=== PATIENT | male | born 1995 | race Caucasian/White ===

== ENCOUNTER 2022-02-01 17:40 | Emergency (ER) | payer OTHER, SELFPAY ==
[2022-02-01 17:46] VITALS: BP 138/90; PULSE 93; RESP 20; TEMP 36.7; O2SAT 95; BMI 36.6
--- NOTE | 2022-02-01 17:50 | ED.GENADULT ---
HPI - General Adult General Chief complaint: Upper Respiratory Symptoms <SAMMY Valdes - Last Filed: 02/05/22 12:51> Stated complaint: cough sob chest pain <SAMMY Valdes - Last Filed: 02/05/22 12:51> Time Seen by Provider: 02/01/22 21:19 <SAMMY Valdes - Last Filed: 02/05/22 12:51> Source: patient <Abner Mann MD - Last Filed: 02/02/22 00:01> Mode of arrival: ambulatory <Abner Mann MD - Last Filed: 02/02/22 00:01> Limitations: no limitations <Abner Mann MD - Last Filed: 02/02/22 00:01> History of Present Illness HPI narrative: Patient's history of remote asthma been coughing for last 3 weeks may have mucopurulent phlegm no fever no chills coughing more in the evening and early a.m. sometime patient gets bright red streaks of blood with mucopurulent phlegm feel chest tight no fever or chills <Abner Mann MD - Last Filed: 02/02/22 00:01> Related Data Home medications: Previous Rx's Medication Instructions Recorded albuterol sulfate 90 mcg/actuation 2 puff inhalation Q4-6H PRN 02/01/22 aerosol inhaler (ProAir HFA) shortness of breath or wheezing #8.5 grams azithromycin 250 mg tablet 250 mg PO DAILY 4 days #4 tabs 02/01/22 (Zithromax Z-Rohit) codeine 10 mg-guaifenesin 100 mg/5 10 ml PO Q6H PRN cough #237 mL 02/01/22 mL oral liquid prednisone 20 mg tablet 40 mg PO DAILY #10 tabs 02/01/22 <SAMMY Valdes - Last Filed: 02/05/22 12:51> Allergies/adverse reactions: Allergies Allergy/AdvReac Type Severity Reaction Status Date / Time No Known Allergies Allergy Unverified 10/29/19 19:27 [No Known Allergies*] <SAMMY Valdes - Last Filed: 02/05/22 12:51> Review of Systems Review of Systems: Yes all other systems are reviewed and are negative <Abner Mann MD - Last Filed: 02/02/22 00:01> [facility] Social History Social History: Social History Advance Directives: No Advance Directives Information Provided: Yes <SAMMY Valdes - Last Filed: 02/05/22 12:51> Physical Exam ED Vital Signs: Vital Signs - 24 hr 02/01/22 17:46 02/01/22 22:17 Temperature 98.1 F Pulse Rate 93 82 Respiratory Rate 20 18 Blood Pressure 138/90 H Pulse Oximetry 95 Oxygen Delivery Method Room Air BMI result Body Mass Index 36.6 <SAMMY Valdes - Last Filed: 02/05/22 12:51> Vital Signs - 24 hr 02/01/22 17:46 02/01/22 22:17 Temperature 98.1 F Pulse Rate 93 82 Respiratory Rate 20 18 Blood Pressure 138/90 H Pulse Oximetry 95 Oxygen Delivery Method Room Air BMI result Body Mass Index 36.6 <Abner Mann MD - Last Filed: 02/02/22 00:01> Appearance: Alert. Oriented X3. No acute distress. ENT: Pharynx normal. Oral Mucosa moist Neck: Normal inspection. Neck supple. CVS: Normal heart rate and rhythm. Pulses normal. Respiratory: No respiratory distress. Equal air entry bilateral, bilateral wheezing no rales Abdomen: Soft and nontender. Bowel sounds are present, no mass palpable, no CVA tenderness Skin: Skin warm and dry. Normal skin color. Normal skin turgor. Extremities: No lower extremity edema. No calf tenderness Neuro: Oriented X 3. No motor deficit. <Abner Mann MD - Last Filed: 02/02/22 00:01> Course Course Course Narrative: RME: 26 yold male presents to the ED for Cough, Chest pain, and SOB and hemopytsis for 3 weeks. EKG, labs, and D -dimer ordered due to hemopytsis <SAMMY Valdes - Last Filed: 02/05/22 12:51> Medications Administered Discontinued Medications Generic Name Dose Route Start Last Admin Trade Name Freq PRN Reason Stop Dose Admin Albuterol Sulfate 2 puff 02/01/22 22:04 02/01/22 22:27 Albuterol Sulfate 90 Mcg 8 Gm Inhaler INHALE 02/01/22 22:05 Not Given ONCE ONE Azithromycin 500 mg 02/01/22 22:04 02/01/22 22:28 Azithromycin 500 Mg Tablet PO 02/01/22 22:05 500 mg ONCE ONE Administration Albuterol Sulfate 2.5 mg/ 0 mg 02/01/22 22:04 02/01/22 22:21 Albuterol/Ipratropium 3 ml INHALE 02/01/22 22:05 2.5 each ONCE ONE Administration Dexamethasone 10 mg 02/01/22 22:04 02/01/22 22:26 Dexamethasone 2 Mg Tablet PO 02/01/22 22:05 10 mg ONCE ONE Administration Guaifenesin/Codeine Phosphate 10 ml 02/01/22 22:04 02/01/22 22:29 Guaifen/Codeine Sf 200/20/10ml 10 Ml Liquid PO 02/01/22 22:05 10 ml ONCE ONE Administration <SAMMY Valdes - Last Filed: 02/05/22 12:51> Medications Administered Discontinued Medications Generic Name Dose Route Start Last Admin Trade Name Adria PRN Reason Stop Dose Admin Albuterol Sulfate 2 puff 02/01/22 22:04 02/01/22 22:27 Albuterol Sulfate 90 Mcg 8 Gm Inhaler INHALE 02/01/22 22:05 Not Given ONCE ONE Azithromycin 500 mg 02/01/22 22:04 02/01/22 22:28 Azithromycin 500 Mg Tablet PO 02/01/22 22:05 500 mg ONCE ONE Administration Albuterol Sulfate 2.5 mg/ 0 mg 02/01/22 22:04 02/01/22 22:21 Albuterol/Ipratropium 3 ml INHALE 02/01/22 22:05 2.5 each ONCE ONE Administration Dexamethasone 10 mg 02/01/22 22:04 02/01/22 22:26 Dexamethasone 2 Mg Tablet PO 02/01/22 22:05 10 mg ONCE ONE Administration Guaifenesin/Codeine Phosphate 10 ml 02/01/22 22:04 02/01/22 22:29 Guaifen/Codeine Sf 200/20/10ml 10 Ml Liquid PO 02/01/22 22:05 10 ml ONCE ONE Administration <Abner Mann MD - Last Filed: 02/02/22 00:01> Medical Decision Making Medical Decision Making [facility] Narrative: Perisplenic bronchitis felt better after nebulizing treatment will discharge patient home <Abner Mann MD - Last Filed: 02/02/22 00:01> Lab Data [facility] Lab Attestation statement: I reviewed the patient's lab results. <Abner Mann MD - Last Filed: 02/02/22 00:01> Result Diagrams: : 02/01/22 18:37 02/01/22 18:37 <SAMMY Valdes - Last Filed: 02/05/22 12:51> Labs: Lab Results 02/01/22 02/01/22 02/01/22 Range/Units 18:36 18:37 18:37 WBC 9.3 (4.8-10.8) X10*3/uL RBC 5.35 (4.60-5.80) X10*6/uL Hgb 15.2 (14.0-18.0) g/dl Hct 45.8 (42.0-52.0) % MCV 85.6 (80.0-98.0) fL MCH 28.4 (27.0-33.0) pg MCHC 33.2 (31.0-36.0) g/dl RDW 12.5 (11.0-16.0) % Plt Count 293 (160-400) X10*3/uL MPV 9.0 L (9.4-12.4) fL Immature Gran % (Auto) 0.1 (0.0-0.4) % Neut % (Auto) 53.0 (45-73) % Lymph % (Auto) 30.8 (20-40) % Loup % (Auto) 7.1 (2-11) % Eos % (Auto) 8.4 H (0-4) % Baso % (Auto) 0.6 (0-2) % Lymph # (Auto) 2.9 (1.2-4.9) X10*3/uL Loup # (Auto) 0.7 (0.1-1.2) X10*3/uL Eos # (Auto) 0.8 H (0.0-0.4) X10*3/uL Baso # (Auto) 0.1 (0.0-0.2) X10*3/uL Abs Immat Gran (auto) 0.01 (0.00-0.03) X10*3/uL Absolute Neuts (auto) 4.9 (2.0-8.3) x10*3/uL Absolute Nucleated RBC 0.000 (0.0-0.012) X10*3/uL Nucleated RBC % (auto) 0.0 (0.0-0.2) /100WBC PT (10.0-13.1) SEC INR (0.9-1.1) APTT (26.0-36.4) SEC D-Dimer High Sensitivty NG/ML Sodium (135-145) mmol/L Potassium (3.3-5.1) mmol/L Chloride (96-108) mmol/L Carbon Dioxide (22-29) mmol/L Anion Gap (12-20) BUN (9-16) mg/dL Creatinine (0.5-1.4) mg/dL Estim Creat Clear Calc Estimated GFR Random Glucose (60-115) mg/dL Calcium (8.4-10.2) mg/dL Total Bilirubin (0.0-1.0) mg/dL AST (5-37) U/L ALT (0-40) U/L Alkaline Phosphatase (39-117) U/L Troponin I High Sens < 3.5 (<3.5-35.0) ng/L B-Natriuretic Peptide (<100) pg/mL Total Protein (6.5-8.0) g/dL Albumin (3.5-5.0) g/dL Influenza Type A (PCR) NEGATIVE (Negative) Influenza Type B (PCR) NEGATIVE (Negative) RSV RNA Qual (PCR) NEGATIVE (Negative) SARS-CoV-2 RNA (RT-PCR) NEGATIVE (Negative) 02/01/22 02/01/22 02/01/22 Range/Units 18:37 18:37 18:37 WBC (4.8-10.8) X10*3/uL RBC (4.60-5.80) X10*6/uL Hgb (14.0-18.0) g/dl Hct (42.0-52.0) % MCV (80.0-98.0) fL MCH (27.0-33.0) pg MCHC (31.0-36.0) g/dl RDW (11.0-16.0) % Plt Count (160-400) X10*3/uL MPV (9.4-12.4) fL Immature Gran % (Auto) (0.0-0.4) % Neut % (Auto) (45-73) % Lymph % (Auto) (20-40) % Loup % (Auto) (2-11) % Eos % (Auto) (0-4) % Baso % (Auto) (0-2) % Lymph # (Auto) (1.2-4.9) X10*3/uL Loup # (Auto) (0.1-1.2) X10*3/uL Eos # (Auto) (0.0-0.4) X10*3/uL Baso # (Auto) (0.0-0.2) X10*3/uL Abs Immat Gran (auto) (0.00-0.03) X10*3/uL Absolute Neuts (auto) (2.0-8.3) x10*3/uL Absolute Nucleated RBC (0.0-0.012) X10*3/uL Nucleated RBC % (auto) (0.0-0.2) /100WBC PT 12.4 (10.0-13.1) SEC INR 1.1 (0.9-1.1) APTT 36.6 H (26.0-36.4) SEC D-Dimer High Sensitivty < 150 NG/ML Sodium 140 (135-145) mmol/L Potassium 4.0 (3.3-5.1) mmol/L Chloride 104 (96-108) mmol/L Carbon Dioxide 28 (22-29) mmol/L Anion Gap 12 (12-20) BUN 18 H (9-16) mg/dL Creatinine 0.92 (0.5-1.4) mg/dL Estim Creat Clear Calc 164.4 Estimated GFR > 60 Random Glucose 75 (60-115) mg/dL Calcium 9.4 (8.4-10.2) mg/dL Total Bilirubin 0.3 (0.0-1.0) mg/dL AST 20 (5-37) U/L ALT 21 (0-40) U/L Alkaline Phosphatase 75 (39-117) U/L Troponin I High Sens (<3.5-35.0) ng/L B-Natriuretic Peptide < 10 (<100) pg/mL Total Protein 8.0 (6.5-8.0) g/dL Albumin 4.4 (3.5-5.0) g/dL Influenza Type A (PCR) (Negative) Influenza Type B (PCR) (Negative) RSV RNA Qual (PCR) (Negative) SARS-CoV-2 RNA (RT-PCR) (Negative) <SAMMY Valdes - Last Filed: 02/05/22 12:51> Lab Results 02/01/22 02/01/22 02/01/22 Range/Units 18:36 18:37 18:37 WBC 9.3 (4.8-10.8) X10*3/uL RBC 5.35 (4.60-5.80) X10*6/uL Hgb 15.2 (14.0-18.0) g/dl Hct 45.8 (42.0-52.0) % MCV 85.6 (80.0-98.0) fL MCH 28.4 (27.0-33.0) pg MCHC 33.2 (31.0-36.0) g/dl RDW 12.5 (11.0-16.0) % Plt Count 293 (160-400) X10*3/uL MPV 9.0 L (9.4-12.4) fL Immature Gran % (Auto) 0.1 (0.0-0.4) % Neut % (Auto) 53.0 (45-73) % Lymph % (Auto) 30.8 (20-40) % Loup % (Auto) 7.1 (2-11) % Eos % (Auto) 8.4 H (0-4) % Baso % (Auto) 0.6 (0-2) % Lymph # (Auto) 2.9 (1.2-4.9) X10*3/uL Loup # (Auto) 0.7 (0.1-1.2) X10*3/uL Eos # (Auto) 0.8 H (0.0-0.4) X10*3/uL Baso # (Auto) 0.1 (0.0-0.2) X10*3/uL Abs Immat Gran (auto) 0.01 (0.00-0.03) X10*3/uL Absolute Neuts (auto) 4.9 (2.0-8.3) x10*3/uL Absolute Nucleated RBC 0.000 (0.0-0.012) X10*3/uL Nucleated RBC % (auto) 0.0 (0.0-0.2) /100WBC PT (10.0-13.1) SEC INR (0.9-1.1) APTT (26.0-36.4) SEC D-Dimer High Sensitivty NG/ML Sodium (135-145) mmol/L Potassium (3.3-5.1) mmol/L Chloride (96-108) mmol/L Carbon Dioxide (22-29) mmol/L Anion Gap (12-20) BUN (9-16) mg/dL Creatinine (0.5-1.4) mg/dL Estim Creat Clear Calc Estimated GFR Random Glucose (60-115) mg/dL Calcium (8.4-10.2) mg/dL Total Bilirubin (0.0-1.0) mg/dL AST (5-37) U/L ALT (0-40) U/L Alkaline Phosphatase (39-117) U/L Troponin I High Sens < 3.5 (<3.5-35.0) ng/L B-Natriuretic Peptide (<100) pg/mL Total Protein (6.5-8.0) g/dL Albumin (3.5-5.0) g/dL Influenza Type A (PCR) NEGATIVE (Negative) Influenza Type B (PCR) NEGATIVE (Negative) RSV RNA Qual (PCR) NEGATIVE (Negative) SARS-CoV-2 RNA (RT-PCR) NEGATIVE (Negative) 02/01/22 02/01/22 02/01/22 Range/Units 18:37 18:37 18:37 WBC (4.8-10.8) X10*3/uL RBC (4.60-5.80) X10*6/uL Hgb (14.0-18.0) g/dl Hct (42.0-52.0) % MCV (80.0-98.0) fL MCH (27.0-33.0) pg MCHC (31.0-36.0) g/dl RDW (11.0-16.0) % Plt Count (160-400) X10*3/uL MPV (9.4-12.4) fL Immature Gran % (Auto) (0.0-0.4) % Neut % (Auto) (45-73) % Lymph % (Auto) (20-40) % Loup % (Auto) (2-11) % Eos % (Auto) (0-4) % Baso % (Auto) (0-2) % Lymph # (Auto) (1.2-4.9) X10*3/uL Loup # (Auto) (0.1-1.2) X10*3/uL Eos # (Auto) (0.0-0.4) X10*3/uL Baso # (Auto) (0.0-0.2) X10*3/uL Abs Immat Gran (auto) (0.00-0.03) X10*3/uL Absolute Neuts (auto) (2.0-8.3) x10*3/uL Absolute Nucleated RBC (0.0-0.012) X10*3/uL Nucleated RBC % (auto) (0.0-0.2) /100WBC PT 12.4 (10.0-13.1) SEC INR 1.1 (0.9-1.1) APTT 36.6 H (26.0-36.4) SEC D-Dimer High Sensitivty < 150 NG/ML Sodium 140 (135-145) mmol/L Potassium 4.0 (3.3-5.1) mmol/L Chloride 104 (96-108) mmol/L Carbon Dioxide 28 (22-29) mmol/L Anion Gap 12 (12-20) BUN 18 H (9-16) mg/dL Creatinine 0.92 (0.5-1.4) mg/dL Estim Creat Clear Calc 164.4 Estimated GFR > 60 Random Glucose 75 (60-115) mg/dL Calcium 9.4 (8.4-10.2) mg/dL Total Bilirubin 0.3 (0.0-1.0) mg/dL AST 20 (5-37) U/L ALT 21 (0-40) U/L Alkaline Phosphatase 75 (39-117) U/L Troponin I High Sens (<3.5-35.0) ng/L B-Natriuretic Peptide < 10 (<100) pg/mL Total Protein 8.0 (6.5-8.0) g/dL Albumin 4.4 (3.5-5.0) g/dL Influenza Type A (PCR) (Negative) Influenza Type B (PCR) (Negative) RSV RNA Qual (PCR) (Negative) SARS-CoV-2 RNA (RT-PCR) (Negative) <Abner Mann MD - Last Filed: 02/02/22 00:01> Discharge Plan Discharge Clinical Impression: Acute asthmatic bronchitis <SAMMY Valdes - Last Filed: 02/05/22 12:51> Patient Disposition: Home, Self-Care <SAMMY Valdes - Last Filed: 02/05/22 12:51> Instructions: Asthma (ED), Acute Bronchitis (ED) <SAMMY Valdes - Last Filed: 02/05/22 12:51> Additional Instructions: Use inhaler as prescribed Prednisone as prescribed Cough syrup and antibiotic as prescribed Follow with PCP <SAMMY Valdes - Last Filed: 02/05/22 12:51> Prescriptions: New prednisone 20 mg tablet 40 mg PO DAILY Qty: 10 0RF codeine-guaifenesin 10-100 mg/5 mL liquid 10 ml PO Q6H PRN (Reason: cough) Qty: 237 0RF albuterol sulfate [ProAir HFA] 90 mcg/actuation HFA aerosol inhaler 2 puff inhalation Q4-6H PRN (Reason: shortness of breath or wheezing) Qty: 8.5 0RF azithromycin [Zithromax Z-Rohit] 250 mg tablet 250 mg PO DAILY 4 Days Qty: 4 0RF Rx Instructions: start on day 2 of therapy <SAMMY Valdes - Last Filed: 02/05/22 12:51> Interventions: ED Discharge Assessment Last Done: 02/01/22 23:14 <SAMMY Valdes - Last Filed: 02/05/22 12:51> Discharge Date/Time: 02/01/22 23:14 <SAMMY Valdes - Last Filed: 02/05/22 12:51>
[2022-02-01 18:47] LABS: MANUAL DIFF FLAG NO
[2022-02-01 18:48] LABS: Basophils Absolute Auto 0.1 X10*3/uL (0.0-0.2); Basophils Percent Auto 0.6 % (0-2); Eosinophils Absolute Auto 0.8 X10*3/uL (0.0-0.4); Eosinophils Percent Auto 8.4 % (0-4); Hematocrit 45.8 % (42.0-52.0); Hemoglobin 15.2 g/dl (14.0-18.0); Imm Gran Abs Auto 0.01 X10*3/uL (0.00-0.03); Imm Gran Pct Auto 0.1 % (0.0-0.4); Lymphocytes Absolute Auto 2.9 X10*3/uL (1.2-4.9); Lymphocytes Percent Auto 30.8 % (20-40); Mean Corpuscular HGB Conc 33.2 g/dl (31.0-36.0); Mean Corpuscular Hemoglobin 28.4 pg (27.0-33.0); Mean Corpuscular Volume 85.6 fL (80.0-98.0); Monocytes Absolute Auto 0.7 X10*3/uL (0.1-1.2); Monocytes Percent Auto 7.1 % (2-11); Neutrophils Absolute Auto 4.9 x10*3/uL (2.0-8.3); Platelet Count 293 X10*3/uL (160-400); Red Blood Count 5.35 X10*6/uL (4.60-5.80); Red Cell Distribution Width 12.5 % (11.0-16.0); White Blood Count 9.3 X10*3/uL (4.8-10.8)
[2022-02-01 18:55] LABS: INTERNATIONAL NORM RATIO 1.1 (0.9-1.1); Prothrombin Time 12.4 SEC (10.0-13.1)
[2022-02-01 18:58] LABS: Partial Thromboplastin Time 36.6 SEC (26.0-36.4)
[2022-02-01 19:04] LABS: Alanine Aminotransferase 21 U/L (0-40); Albumin Level 4.4 g/dL (3.5-5.0); Alkaline Phosphatase 75 U/L (39-117); Anion Gap 12 (12-20); Aspartate Amino Transferase 20 U/L (5-37); Bilirubin Total 0.3 mg/dL (0.0-1.0); Blood Urea Nitrogen 18 mg/dL (9-16); Calcium 9.4 mg/dL (8.4-10.2); Carbon Dioxide 28 mmol/L (22-29); Chloride 104 mmol/L (96-108); Creatinine Clr Calc Pharmacy 164.4; Estimated Glomerular Filt Rate > 60; Glucose Random 75 mg/dL (60-115); Sodium 140 mmol/L (135-145)
[2022-02-01 19:07] LABS: D Dimer High Sensitivity < 150 NG/ML
[2022-02-01 19:09] LABS: B Type Natriuretic Peptide < 10 pg/mL (<100)
[2022-02-01 19:11] LABS: Troponin-I High Sensitivity < 3.5 ng/L (<3.5-35.0)
[2022-02-01 19:31] LABS: Influenza A PCR NEGATIVE (Negative); Influenza B PCR NEGATIVE (Negative); Resp Syncy Virus RNA Qual PCR NEGATIVE (Negative); SARS COV2 PCR INHOUSE NEGATIVE (Negative)
[2022-02-01 22:17] VITALS: PULSE 82; RESP 18; O2SAT 95
[2022-02-01] MEDS: Albuterol Sulfate 2.5 MG, Albuterol/Iprat 2.5/0.5MG 3 ML 3 ML INHALE (22:21)
[2022-02-01] MEDS: dexAMETHasone 2 MG TABLET 10 MG PO (22:26)
[2022-02-01] MEDS: Azithromycin 500 MG TABLET PO (22:28)
[2022-02-01] MEDS: guaiFEN/Codeine SF 200/20/10ML 10 ML LIQUID PO (22:29)
== END 2022-02-01 23:14 | disposition home or self-care (01) ==
PROVIDERS: Physician Assistant; Emergency Provider Internal Medicine
DX: J45.909 Unspecified asthma, uncomplicated (principal); J20.9 Acute bronchitis, unspecified; Z20.822 Contact with and (suspected) exposure to COVID-19; R06.02 Shortness of breath
CPT/HCPCS: 0241U; 36415; 71045; 80053; 83880; 84484; 85025; 85379; 85610; 85730; 93005; 94640; 99283; 99284; J8540

== ENCOUNTER 2023-10-15 08:22 | Emergency (ER) | payer OTHER, SELFPAY ==
--- NOTE | ~2023-10-15 | XR_ITS ---
EXAMINATION: XR CHEST CLINICAL INFORMATION: Cough and wheezing COMPARISON: 02/01/2022 TECHNIQUE: 2 views of the chest were obtained. FINDINGS: Some minimal streaky densities seen on the lateral radiograph overlying the lower thoracic spine likely representing basilar atelectasis, side uncertain. There is no gross consolidation. No significant abnormality is noted involving the heart, lungs, mediastinum, bony thorax or soft tissues. XR/XR chest 2V IMPRESSION: No acute intrathoracic disease. Minimal basilar atelectasis. Electronically signed by: Jani Nguyen MD 10/15/2023 11:18 AM EDT
[2023-10-15 08:29] VITALS: BP 129/77; PULSE 100; RESP 19; TEMP 37.4; O2SAT 99; BMI 35.3
[2023-10-15] MEDS: Albuterol Sulfate 2.5 MG, Albuterol/Iprat 2.5/0.5MG 3 ML 3 ML INHALE (09:13)
[2023-10-15 09:15] VITALS: PULSE 100; RESP 19; O2SAT 98
--- NOTE | 2023-10-15 09:44 | ED.URI ---
HPI - URI/Sore Throat General Chief Complaint: Upper Respiratory Symptoms Stated Complaint: SOB, dizziness Time Seen by Provider: 10/15/23 08:42 Source: patient Mode of arrival: ambulatory Limitations: no limitations History of Present Illness ED Provider: Rebecca Laws PA-C HPI Narrative: 28 yo with history of asthma presenting to the ER for evaluation of SOB, wheezing, productive cough, fatigue and feeling unwell since yesterday morning. He has history of asthma and does not have an inhaler, it ran out. He had chills yesterday and a possible subjective fever. He has been bringing up yellow phlegm at times. He has chest discomfort when he coughs and touches his chest wall. No abdominal pain, nausea, vomiting, diarrhea, leg swelling. No known sick contacts. MD elicited complaint: fever, cough, sore throat and other (wheezing) Pertinent past history: asthma Onset (ago): day(s) (1) Consistency: progressively worsening Severity: moderate Description of mucous: clear and yellow Able to tolerate fluids by mouth: Yes Exacerbating factors: nothing Relieving factors: nothing Associated symptoms: fever, chills, myalgias, sore throat, cough, chest pain and shortness of breath Treatments prior to arrival: none Related Data Previous Rx's ?Medication ?Instructions ?Recorded albuterol sulfate 90 mcg/actuation 2 puff inhalation Q4-6H PRN 02/01/22 aerosol inhaler (ProAir HFA) shortness of breath or wheezing #8.5 grams azithromycin 250 mg tablet 250 mg PO DAILY 4 days #4 tabs 02/01/22 (Zithromax Z-Rohit) codeine 10 mg-guaifenesin 100 mg/5 10 ml PO Q6H PRN cough #237 mL 02/01/22 mL oral liquid prednisone 20 mg tablet 40 mg (2 x 20 mg) PO DAILY #10 tabs 02/01/22 albuterol sulfate 90 mcg/actuation 1 inh inhalation QID PRN shortness 10/15/23 aerosol inhaler of breath or wheezing #6.7 grams azithromycin 250 mg tablet See Rx Instructions PO .COMPLEX #6 10/15/23 (Zithromax Z-Rohit) tabs prednisone 20 mg tablet 40 mg (2 x 20 mg) PO DAILY #10 tabs 10/15/23 Allergies Allergy/AdvReac Type Severity Reaction Status Date / Time No Known Allergies Allergy Verified 10/15/23 08:31 [No Known Allergies*] Review of Systems Review of Systems: Yes all other systems are reviewed and are negative [facility] Social History Social History Advance Directives: No Advance Directives Information Provided: No Do you have a plan to hurt others: No Plan Physical Exam Vital Signs: Vital Signs: Last Vital Signs Temp 0 F L 10/15/23 11:09 Pulse 100 10/15/23 11:09 Resp 19 10/15/23 11:09 BP 0/0 L 10/15/23 11:09 Pulse Ox 99 10/15/23 08:29 O2 Del Method Room Air 10/15/23 08:29 BMI result Body Mass Index 35.3 Appearance: Alert. Oriented X3. No acute distress. Head: normocephalic, atraumatic. Eyes: Pupils equal, round and reactive to light. ENT: Pharynx normal. No tonsillar swelling or exudate. Neck: Normal inspection. Neck supple. CVS: Normal heart rate and rhythm. Pulses normal. Respiratory: No respiratory distress. Breath sounds with bilateral expiratory wheezes Abdomen: Soft and nontender. +BS x4 Skin: Skin warm and dry. Normal skin color. Normal skin turgor. No rashes. Extremities: No lower extremity edema. No joint swelling. Neuro/psych: Oriented X 3. No motor deficit. No sensory deficit. CN II-XII intact. Normal speech and cognition. Medications Administered Discontinued Medications Generic Name Dose Route Start Last Admin Trade Name Freq PRN Reason Stop Dose Admin Albuterol Sulfate 2.5 mg/ 0 mg 10/15/23 09:09 10/15/23 09:13 Albuterol/Ipratropium 3 ml INHALE 10/15/23 09:10 7.5 dose ONCE ONE Administration Guaifenesin 1,200 mg 10/15/23 08:55 10/15/23 10:00 Guaifenesin La 600 Mg Tab.Er.12h PO 10/15/23 08:56 1,200 mg ONCE ONE Administration Prednisone 50 mg 10/15/23 08:55 10/15/23 10:00 Prednisone 10 Mg Tablet PO 10/15/23 08:56 50 mg ONCE ONE Administration Medical Decision Making Medical Decision Making MDM Narrative: 28 yo male with history of asthma presenting for evaluation of URI symptoms along w cough and wheezing that started yesterday. On arrival he is wheezey but not working to breathe. Saturating well. He has chest wall tenderness, no chest pain at rest. low suspicion for cardiac etiology ED bronch protocol ordered along with PO prednisone he was re-evaluated after given neb treatment and he felt much better and his lung sounds significantly improved. covid negative today cxr without PNA. will treat for acute bronchitis. stable for d/c home with outpatient follow up Differential Diagnosis Differential Diagnoses: The differential diagnosis associated with the presentation includes strep, covid, flu, rsv, other viral syndrome, bronchitis, pneumonia, acute asthma exacerbation Admission/Observation Consideration of admission/observation: Escalation of care including admission/observation considered Lab Data [facility] Lab Attestation statement: I reviewed the patient's lab results. Labs: Lab Results 10/15/23 Range/Units 09:56 COVID-19 (ABILIO) Negative (Negative) COVID-19 Clin Com See Note Independent Interpretation I performed an independent interpretation of an: Plain X-Ray Interpretation: cxr clear without focal infiltrate Radiology Impression Discussion of test interpretation with radiology: I have reviewed the radiologist's reading. External Record Review External record reviewed: Outpatient record Tests considered The following testing was considered but not selected: ekg considered but low suspicion for cardiac etiology Prescription Management I considered prescription management with: Antibiotic Chronic Conditions Patient?s care impacted by: Other (asthma) Critical Care Time Critical Care Time Critical Care Time: No Discharge Plan Discharge Clinical Impression: Bronchitis Patient Disposition: Home, Self-Care Instructions: Acute Bronchitis (ED) Additional Instructions: You tested negative for COVID-19. Your chest x-ray did not show any evidence of pneumonia. Take the prescribed antibiotics as directed, complete the entire course and do not miss any doses Take the prescribed prednisone as directed, start the course tomorrow morning as your given 1st dose in the ER today. Prescriptions: New azithromycin [Zithromax Z-Rohit] 250 mg tablet See Rx Instructions .ROUTE .COMPLEX Qty: 6 0RF Rx Instructions: take 500 mg today (day 1), then 250 mg for 4 days (days 2-5) prednisone 20 mg tablet 40 mg PO DAILY Qty: 10 0RF albuterol sulfate 90 mcg/actuation HFA aerosol inhaler 1 inh inhalation QID PRN (Reason: shortness of breath or wheezing) Qty: 6.7 0RF No Action prednisone 20 mg tablet 40 mg PO DAILY Qty: 10 0RF codeine-guaifenesin 10-100 mg/5 mL liquid 10 ml PO Q6H PRN (Reason: cough) Qty: 237 0RF albuterol sulfate [ProAir HFA] 90 mcg/actuation HFA aerosol inhaler 2 puff inhalation Q4-6H PRN (Reason: shortness of breath or wheezing) Qty: 8.5 0RF azithromycin [Zithromax Z-Rohit] 250 mg tablet 250 mg PO DAILY 4 Days Qty: 4 0RF Rx Instructions: start on day 2 of therapy Stand Alone Forms: Work/School Release Interventions: ED Discharge Assessment Last Done: 10/15/23 11:09 Discharge Date/Time: 10/15/23 11:11 Print Language: Kittitian
[2023-10-15] MEDS: guaiFENesin LA 600 MG TAB.ER.12H 1200 MG PO (10:00)
[2023-10-15] MEDS: predniSONE 10 MG TABLET 50 MG PO (10:00)
[2023-10-15 10:24] LABS: COVID-19 Test Negative (Negative); IDNOW Serial# 08D9AD1C
[2023-10-15 11:09] VITALS: BP 0/0; PULSE 100; RESP 19; TEMP -17.7; TEMP 0
== END 2023-10-15 11:11 | disposition home or self-care (01) ==
PROVIDERS: Physician Assistant; Emergency Provider Emergency Medicine
DX: J40 Bronchitis, not specified as acute or chronic (principal); R06.02 Shortness of breath; R42 Dizziness and giddiness; R05.9 Cough, unspecified; R06.2 Wheezing; Z11.52 Encounter for screening for COVID-19
CPT/HCPCS: 71046; 87635; 94640; 99283; 99284

== ENCOUNTER 2024-03-20 14:10 | Emergency (ER) | payer OTHER, SELFPAY ==
--- NOTE | ~2024-03-20 | XR_ITS ---
EXAMINATION: XR CHEST CLINICAL INFORMATION: cough COMPARISON: October 15, 2023 TECHNIQUE: Frontal view of the chest was obtained. FINDINGS: No consolidation pleural effusion or pneumothorax. Cardiomediastinal silhouette size is normal. Osseous structures are intact. XR/XR chest 1V IMPRESSION: Normal Electronically signed by: Dominic Calderon MD 03/20/2024 03:06 PM [facility] [place]
[2024-03-20 14:40] VITALS: BP 120/79; PULSE 80; RESP 19; TEMP 36.4; O2SAT 96; BMI 36.6
--- NOTE | 2024-03-20 14:42 | ED_ITS ---
HPI - General Adult General Chief complaint: Upper Respiratory Symptoms Stated complaint: Diff Breathing Cough Sinus Issues Time Seen by Provider: 03/20/24 20:38 Source: patient Limitations: no limitations History of Present Illness ED Provider: Jeana Santiago PA-C HPI narrative: 28-year-old male with a history of asthma who presents with cough and cold symptoms x2 weeks. Associated bronchospasm type cough, and wheezing at times. Denies fever. Related Data Previous Rx's ?Medication ?Instructions ?Recorded albuterol sulfate 90 mcg/actuation 2 puff inhalation Q4-6H PRN 02/01/22 aerosol inhaler (ProAir HFA) shortness of breath or wheezing #8.5 grams azithromycin 250 mg tablet 250 mg PO DAILY 4 days #4 tabs 02/01/22 (Zithromax Z-Rohit) codeine 10 mg-guaifenesin 100 mg/5 10 ml PO Q6H PRN cough #237 mL 02/01/22 mL oral liquid prednisone 20 mg tablet 40 mg (2 x 20 mg) PO DAILY #10 tabs 02/01/22 albuterol sulfate 90 mcg/actuation 1 inh inhalation QID PRN shortness 10/15/23 aerosol inhaler of breath or wheezing #6.7 grams azithromycin 250 mg tablet See Rx Instructions PO .COMPLEX #6 10/15/23 (Zithromax Z-Rohit) tabs prednisone 20 mg tablet 40 mg (2 x 20 mg) PO DAILY #10 tabs 10/15/23 albuterol sulfate 90 mcg/actuation 2 puff inhalation Q4-6H PRN 03/20/24 aerosol inhaler shortness of breath or wheezing #6.7 grams prednisone 20 mg tablet 40 mg (2 x 20 mg) PO DAILY #8 tabs 03/20/24 Allergies Allergy/AdvReac Type Severity Reaction Status Date / Time No Known Allergies Allergy Verified 03/20/24 14:41 [No Known Allergies*] Review of Systems 2 Review of Systems: Yes all other systems are reviewed and are negative Constitutional: Constitutional: Denies fatigue and Denies fever(s) Cardiovascular: Cardiovascular: Denies chest pain and Reports dyspnea Respiratory: Respiratory: Reports cough, Reports dyspnea and Reports wheezing Gastrointestinal: Gastrointestinal: Denies diarrhea, Denies nausea and Denies vomiting Endocrine: Endocrine: Denies fatigue Allergic/Immunologic: Allergic/Immunologic: Reports wheezing PMFSH Past Medical History Attestation statement: The following information was validated with the patient. Physical Exam ED Vital Signs: Vital Signs - 24 hr 03/20/24 14:40 03/20/24 20:32 Temperature 97.6 F 97.8 F Pulse Rate 80 89 Respiratory Rate 19 14 Blood Pressure 120/79 129/83 Pulse Oximetry 96 96 Oxygen Delivery Method Room Air Room Air BMI result Body Mass Index 36.6 Const Other: Alert Orientation/consciousness: patient oriented x3 Resp Other: Normal peripheral perfusion, no wheezing active bronchospasm cough Cardio Other: Normal peripheral perfusion Skin Other: Warm dry no rash Neuro General: patient oriented x3, no focal motor deficits and CN's II-XI intact bilaterally Psych Other: Cooperative Course Course Course Narrative: This is a rapid medical exam performed by Jeana Santiago PA-C. The patient is a 28-year-old male with a history of asthma who presents with cough and cold symptoms x2 weeks. On exam his lungs are clear yet diminished with poor inspiratory effort. No wheezing. We will screen basic labs, viral panel and chest x-ray. The patient is stable and can return to the waiting room pending his full medical assessment. Medical Decision Making Medical Decision Making MDM Narrative: 28-year-old male with a history of asthma who presents with cough and cold symptoms x2 weeks. Associated bronchospasm type cough, and wheezing at times. Denies fever. Problem: Asthma History: Per patient I have considered the following differential diagnoses: Asthma exacerbation, bronchitis, pneumonia, viral syndrome Plan: Screening labs including viral panel and chest x-ray were obtained from triage, everything is negative. We will send with an inhaler and a steroid taper. I have independently reviewed the following tests: Labs: No leukocytosis, not anemic, no electrolyte abnormality, viral panel negative Chest x-ray: XR/XR chest 1V IMPRESSION: Normal Electronically signed by: Dominic Calderon MD 03/20/2024 03:06 [place] [facility] [place] 03/20/24 15:17 03/20/24 15:17 Labs: Lab Results 03/20/24 Range/Units 15:17 WBC 7.7 (4.8-10.8) X10*3/uL RBC 5.20 (4.60-5.80) X10*6/uL Hgb 15.1 (14.0-18.0) g/dl Hct 44.3 (42.0-52.0) % MCV 85.2 (80.0-98.0) fL MCH 29.0 (27.0-33.0) pg MCHC 34.1 (31.0-36.0) g/dl RDW 12.2 (11.0-16.0) % Plt Count 295 (160-400) X10*3/uL MPV 8.8 L (9.4-12.4) fL Immature Gran % (Auto) 0.3 (0.0-0.4) % Neut % (Auto) 55.1 (45-73) % Lymph % (Auto) 30.7 (20-40) % Overton % (Auto) 7.0 (2-11) % Eos % (Auto) 6.3 H (0-4) % Baso % (Auto) 0.6 (0-2) % Lymph # (Auto) 2.4 (1.2-4.9) X10*3/uL Overton # (Auto) 0.5 (0.1-1.2) X10*3/uL Eos # (Auto) 0.5 H (0.0-0.4) X10*3/uL Baso # (Auto) 0.1 (0.0-0.2) X10*3/uL Abs Immat Gran (auto) 0.02 (0.00-0.03) X10*3/uL Absolute Neuts (auto) 4.3 (2.0-8.3) x10*3/uL Absolute Nucleated RBC 0.000 (0.0-0.012) X10*3/uL Nucleated RBC % (auto) 0.0 (0.0-0.2) /100WBC Sodium 139 (135-145) mmol/L Potassium 3.8 (3.3-5.1) mmol/L Chloride 106 (96-108) mmol/L Carbon Dioxide 26 (22-29) mmol/L Anion Gap 11 L (12-20) BUN 13 (9-16) mg/dL Creatinine 0.80 (0.5-1.4) mg/dL Estim Creat Clear Calc 185.7 Estimated GFR > 60 Random Glucose 85 (60-115) mg/dL Calcium 9.2 (8.4-10.2) mg/dL Magnesium 2.1 (1.6-2.6) mg/dL Influenza Type A (PCR) NEGATIVE (Negative) Influenza Type B (PCR) NEGATIVE (Negative) RSV RNA Qual (PCR) NEGATIVE (Negative) SARS-CoV-2 RNA (RT-PCR) NEGATIVE (Negative) Discharge Plan Discharge Clinical Impression: Bronchospasm Patient Disposition: Home, Self-Care Instructions: Bronchospasm (ED) Additional Instructions: All of your screening labs were normal, the viral panel was negative, you were screened for influenza a and B RSV and COVID. The chest x-ray is clear. You are being treated for bronchospasm type cough. Use the albuterol inhaler as needed, take the steroid as directed. Follow up with your primary care provider as needed. Prescriptions: New albuterol sulfate 90 mcg/actuation HFA aerosol inhaler 2 puff inhalation Q4-6H PRN (Reason: shortness of breath or wheezing) Qty: 6.7 0RF prednisone 20 mg tablet 40 mg PO DAILY Qty: 8 0RF No Action prednisone 20 mg tablet 40 mg PO DAILY Qty: 10 0RF codeine-guaifenesin 10-100 mg/5 mL liquid 10 ml PO Q6H PRN (Reason: cough) Qty: 237 0RF albuterol sulfate [ProAir HFA] 90 mcg/actuation HFA aerosol inhaler 2 puff inhalation Q4-6H PRN (Reason: shortness of breath or wheezing) Qty: 8.5 0RF azithromycin [Zithromax Z-Rohit] 250 mg tablet 250 mg PO DAILY 4 Days Qty: 4 0RF Rx Instructions: start on day 2 of therapy azithromycin [Zithromax Z-Rohit] 250 mg tablet See Rx Instructions .ROUTE .COMPLEX Qty: 6 0RF Rx Instructions: take 500 mg today (day 1), then 250 mg for 4 days (days 2-5) prednisone 20 mg tablet 40 mg PO DAILY Qty: 10 0RF albuterol sulfate 90 mcg/actuation HFA aerosol inhaler 1 inh inhalation QID PRN (Reason: shortness of breath or wheezing) Qty: 6.7 0RF Print Language: Tajik
[2024-03-20 15:22] LABS: MANUAL DIFF FLAG NO
[2024-03-20 15:34] LABS: Basophils Absolute Auto 0.1 X10*3/uL (0.0-0.2); Basophils Percent Auto 0.6 % (0-2); Eosinophils Absolute Auto 0.5 X10*3/uL (0.0-0.4); Eosinophils Percent Auto 6.3 % (0-4); Hematocrit 44.3 % (42.0-52.0); Hemoglobin 15.1 g/dl (14.0-18.0); Imm Gran Abs Auto 0.02 X10*3/uL (0.00-0.03); Imm Gran Pct Auto 0.3 % (0.0-0.4); Lymphocytes Absolute Auto 2.4 X10*3/uL (1.2-4.9); Lymphocytes Percent Auto 30.7 % (20-40); Mean Corpuscular HGB Conc 34.1 g/dl (31.0-36.0); Mean Corpuscular Volume 85.2 fL (80.0-98.0); Mean Platelet Volume 8.8 fL (9.4-12.4); Monocytes Absolute Auto 0.5 X10*3/uL (0.1-1.2); Neutrophils Absolute Auto 4.3 x10*3/uL (2.0-8.3); Neutrophils Percent Auto 55.1 % (45-73); Platelet Count 295 X10*3/uL (160-400); Red Cell Distribution Width 12.2 % (11.0-16.0); White Blood Count 7.7 X10*3/uL (4.8-10.8)
[2024-03-20 15:36] LABS: Anion Gap 11 (12-20); Blood Urea Nitrogen 13 mg/dL (9-16); Calcium 9.2 mg/dL (8.4-10.2); Carbon Dioxide 26 mmol/L (22-29); Chloride 106 mmol/L (96-108); Creatinine Clr Calc Pharmacy 185.7; Estimated Glomerular Filt Rate > 60; Glucose Random 85 mg/dL (60-115); Magnesium 2.1 mg/dL (1.6-2.6); Potassium 3.8 mmol/L (3.3-5.1); Sodium 139 mmol/L (135-145)
[2024-03-20 16:02] LABS: Influenza A PCR NEGATIVE (Negative); Influenza B PCR NEGATIVE (Negative); Resp Syncy Virus RNA Qual PCR NEGATIVE (Negative); SARS COV2 PCR INHOUSE NEGATIVE (Negative)
[2024-03-20 20:32] VITALS: BP 129/83; PULSE 89; RESP 14; TEMP 36.6; O2SAT 96
--- OUTSIDE RECORDS SUMMARY | 2024-03-20 20:52 | XMS_ITS | Clinical Summary ---
Author Organization [facility] it Address [address] [place] [address] Care Team Providers Care Laser Print Operator Name Role First SamplerKlaus Nieto MD Primary Care Provider [phone] Surgical History Surgery Date Site/Laterality Comments OTHER SURGICAL HISTORY PROCEDURE: DENIES PREVIOUS SURGERY Medical History Medical History Date Comments Obesity 09/30/2013 DX:Obesity History of asthma 01/29/2014 DX:History of asthma Family History Medical History Relation Name Comments Other: epilepsy Brother 1 Hypertension Maternal Grandfather Alzheimer's disease Maternal Grandmother Diabetes Mother Other: gastric bypass Mother Relation Name Status Comments Brother 1 Alive Mental illness, seizure, hypoglycemia Brother 2 Alive Brother 3 Alive Brother 4 Alive Brother 5 Alive Father Alive Unknown Maternal Grandfather Alive Maternal Grandmother Alive Mother Alive DM Paternal Grandfather Alive Paternal Grandmother Sister Alive Social History Tobacco Use Types Packs/Day Years Used Date Smoking Tobacco: Never Smokeless Tobacco: Never Alcohol Use Standard Drinks/Week Comments Yes 0 (1 standard drink = 0.6 oz pur e alcohol) Sex and Gender Information Value Date Recorded Sex Assigned at Not on file Gender Identity Not on file Sexual Orientation Not on file Obstetrics History Plan of Treatment Health Maintenance Due Date Last Done Comments DTaP,Tdap,and Td Vaccines (1 - Tdap) 04/14/2014 Hepatitis B Vaccines (1 of 3 - 19+ 3-dose series) 04/14/2014 Cholesterol Screening (Lipid Panel) 01/13/2022 Depression Screening 01/13/2022 HIV Screening 01/13/2022 Hepatitis C Screening 01/13/2022 Social Influencers of Health Screening 01/13/2022 COVID-19 Vaccine (1 - 4-2 5 season) 2023 Influenza Vaccine (#1) 2023 01/29/2014 HIB Vaccines Aged Out No longer eligi ble based on patient's age to complete this topic HPV Vaccines Aged Out No longer eligi ble based on patient's age to complete this topic Hepatitis A Vaccines Aged Out No long er eligible based on patient's age to complete this topic IPV Vaccines Aged Out No longer eligi ble based on patient's age to complete this topic MMR Vaccines Aged Out No longer eligi ble based on patient's age to complete this topic Meningococcal ACWY Vaccine Aged Out N o longer eligible based on patient's age to complete this topic Pneumococcal Vaccine: Pediat rics (0 to 5 Years) and At-Risk Patients (6 to 64 Years) Aged Out No longer eligi ble based on patient's age to complete this topic RSV Immunization Patients Un kim 20 months Aged Out No longer eligible b ased on patient's age to complete this topic Varicella Vaccines Aged Out No longer eligible based on patient's age to complete this topic Care Teams Laser Print Operator Relationship Specialty Start Date End Date Klaus Nieto MD PCP - General Internal Medicine 12/21/13
[2024-03-20] MEDS: predniSONE 20 MG TABLET 40 MG PO (21:24)
[2024-03-20 21:26] VITALS: BP 129/83; PULSE 89; RESP 14; TEMP 36.6; O2SAT 96
== END 2024-03-20 21:26 | disposition home or self-care (01) ==
PROVIDERS: Physician Assistant Medical; Emergency Provider Emergency Medicine
DX: J98.01 Acute bronchospasm (principal); R06.02 Shortness of breath; R05.9 Cough, unspecified; Z79.899 Other long term (current) drug therapy; Z03.818 Encounter for observation for suspected exposure to other biological agents ruled out
CPT/HCPCS: 0241U; 36415; 71045; 80048; 83735; 85025; 99283

== ENCOUNTER → 2024-03-20 14:40 | Outpatient (BNV) | payer OTHER, SELFPAY | PROVIDERS: Visit Provider Radiology Diagnostic Radiology | DX: R05.9 Cough, unspecified (principal) | CPT/HCPCS: 71045 ==

== ENCOUNTER 2025-01-18 10:52 | Outpatient (AMB) | payer BC, SELFPAY ==
--- NOTE | 2025-01-18 10:55 | A.OFFPC_ITS ---
Vital Signs 01/18/25 11:02 Height 6 ft Weight 279 lb 8 oz BMI 37.9 BP 118/68 Blood Pressure Location Lt brachial Position Sitting Respiration 12 Pulse 82 Pulse Source Pulse Oximeter Temp 97.5 F Temp Source Oral Pulse Oximetry (%) 98 Oxygen Delivery Method Room Air Intake Visit Reasons: CPE Intake Note: New patient to establish care and cpe. Patient needs refill on med. 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 Allergies No Known Allergies (No Known Allergies*) Allergy (Verified 01/18/25 11:23) Medication List - Last Reviewed 01/18/25 by Tawny Lundberg MA albuterol sulfate 90 mcg/actuation 2 puffs inhalation Q4-6H PRN Tobacco use date assessed: 01/18/25 Dental Screening Dental Screen Date: 01/18/25 Did you have a dental visit in the last 12 months?: Yes Did you have a dental problem in the last 6 months where you did not have access to dental care?: No Was dental information given to patient?: Patient has dentist HPI HPI Comments History of Present Illness Details 29 y/o M with asthma, obesity Social: has 2 children, works on [employer] Surgery: None Fhx: Health Maintenance Tdap 2018 Flu declined 01/18/25 Specialists [facility] wears glasses History of Present Illness The patient is a 29 year old male presenting to establish care and discuss multiple concerns, including fatigue, a vasectomy consultation, and asthma. Limited medical records avail from [facility] ED visits only, reviewed. Fatigue: - He reports feeling sluggish and tired for about a month and a half, with no desire to do anything. - The onset of these symptoms coincides with his return to work after being out for three months following the of his second child. - He reports not feeling rested upon wak ing and admits to snoring. - He has difficulty falling asleep, ofte n lying in bed for about an hour before sleeping, and goes to sleep between 11 PM and midnight. - He denies mood-related issues like anx iety or depression. - He has never had a sleep study. Obesity: - His past medical history is significan t for obesity with a BMI of 37.9. Asthma: - He has a history of asthma and uses an albuterol inhaler as needed, though he has not required it in a couple of years. - His respiratory symptoms worsened afte r having COVID-19, particularly over the last year with physical activity. - He confirms albuterol helps when he us es it. - Declined flu shot; Tdap 2018 Vasectomy Consideration: - He is interested in getting a vasectom y. Premature Ejaculation: - He reports a new onset of reaching eja culation within about five minutes of intercourse, which has been his new normal for a couple of years. - This is occurring with his same partne r of five years, and he denies any as sociated anxiety. Allergic Rhinitis and Hearing Changes: - He reports an intermittent runny nose, alternating between nostrils, which resolves and then recurs after a week or two. - He experiences a clogged or numb sensa tion in his left ear intermittently and feels like his hearing diminishes at times. 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 - He reports some post-nasal drip. Past Medical History - Asthma - Obesity with BMI of 37.9 - History of hypercholesterolemia during his teenage years, which resolved. - COVID-19 infection, which led to a wor sening of respiratory symptoms. - Immunizations: Tdap vaccination in 8. - Declines flu shot. - Surgical History: Denies any past surg eries. Review of Systems - Constitutional: Reports fatigue and fe eling sluggish for one and a half months. - Eyes/Ears/Nose/Throat: Reports intermi ttent rhinorrhea, sensation of clogged left ear with subjective hearing changes, and some postnasal drip. Denies use of nasal sprays. - Respiratory: Reports worsening asthma symptoms with activity over the last year. Denies needing albuterol for the past couple of years. - Neurological: Reports difficulty falli ng asleep but does not feel rested upon waking. Reports snoring. Denies feeling anxious or depressed. - Genitourinary: Reports new onset america ture ejaculation for the past couple of years. Physical Exam General: Well developed, well nourished, in no acute distress. Appears stated age. Head: Normocephalic, atraumatic. Eyes: Pupils are equal, round and reactive to light and accommodation. Conjunctivae are clear. Vision grossly normal. Ears: TM intact bilat, bulging w/ loss of landmarks on L, mildly erythematous bilat, EAC clear Nose: Nares patent, turbinates pale and edematous, no sinus tenderness Throat: clear no PND Lungs: Clear to auscultation bilaterally. No rales, rhonchi or wheeze noted. Good air flow in all topete. Heart: Regular rate and rhythm. No murmurs, click, rubs or gallops are noted. Psych: Mood and affect appropriate. Results Pending Medical Decision Making The patient is a 29-year-old male here to establish care with multiple concerns. His primary complaints are fatigue and feeling sluggish, which began about a month and a half ago, coinciding with his return to work and the recent of his second child. Given his obesity (BMI 37.9), reports of snoring, and unrefreshing sleep, obstructive sleep apnea is a strong consideration, warranting a home sleep study. To further investigate the fatigue and new-onset premature ejaculation, a testosterone level will be checked via labs, as low levels can contribute to both symptoms. He also has a past history of high cholesterol, so a lipid panel is also indicated. He reports intermittent rhinitis, a clogged sensation, and subjective hearing changes in the left ear. Physical exam revealed significant fluid in both ears, worse on the left. This suggests eustachian tube dysfunction secondary to allergic rhinitis. Treatment will be initiated with a nasal steroid spray and an oral allergy medication to decompress the ears and alleviate nasal symptoms. An audiogram is ordered to establish a baseline and assess for any underlying hearing loss, especially given his occupational noise exposure without hearing protection. If symptoms do not improve or the audiogram is abnormal, an ENT referral will be necessary. His asthma is reportedly stable and only requires occasional albuterol, mainly with activity. A refill for his albuterol inhaler will be provided. He will be monitored, and a daily controller medication will be considered if symptoms worsen. A referral will be placed to [facility] for a vasectomy consultation. The concern of premature ejaculation will be added to the referral so the urologist can address it if the initial workup is unrevealing. Follow-up is scheduled in a few weeks to review the results of the labs and sleep study, and to assess his response to treatment for his ear and nasal symptoms. Plan 1. Fatigue And Sleep Disturbance - The patient's fatigue, unrefreshing sl eep, and snoring are concerning for obstructive sleep apnea. - A home sleep study will be ordered to evaluate for sleep-disordered breathing and nocturnal hypoxemia. - Blood work will be ordered today, incl uding a testosterone level, to rule out hormonal causes of fatigue. 2. Allergic Rhinitis And Eustachian Tube Dysfunction - The patient has symptoms of rhinitis a nd exam findings of fluid in the ears, particularly on the left, suggesting eustachian tube dysfunction. - A nasal spray will be prescribed, one spray in each nostril twice daily, to help with his nasal symptoms and decompress his ears. - An vmtf-vvd-qozddcd allergy pill, one tablet once daily, is recommended for a couple of weeks. - A referral for an audiogram (hearing t est) will be placed to assess his hearing. - If these treatments are ineffective or the hearing test is abnormal, a referral to an ENT specialist will be considered. 3. Asthma - A prescription for his as-needed albut kamilla inhaler will be refilled and sent to [facility] in [place]. - The plan is to continue with the as-ne eded inhaler for now and consider a daily controller medication if his asthma symptoms give him additional issues. 4. Vasectomy Consideration And Premature Ejaculation - A referral will be placed to [facility] for a vasectomy consultation. - The urology referral will also include the patient's concern about premature ejaculation for the specialist to address. - A testosterone level is being checked as part of his lab work, a potential contributor to his sexual health concerns. 5. Health Maintenance - Lab work ordered for today to check ch olesterol and other baseline values. - The patient declined the influenza vac cine. - Follow-up appointment scheduled in a c ouple of weeks to go over test results and reassess symptoms. Patient Instructions - You will receive a call from [facility] to schedule a consultation for a vasectomy. - You will also receive a call from the hospital to schedule a hearing test (audiogram) and a home sleep study. - You can get your blood work done today at the lab here in the building. - I have sent prescriptions to your phar daylin ([facility] in [place]). - Use the prescribed nasal spray with on e spray in each nostril in the morning and at night. - Take the prescribed allergy pill once a day for a couple of weeks. - Please schedule a follow-up appointmen t in a couple of weeks to review your test results. - After your visit, you will receive an email to sign up for the [facility] patient portal. Please click the link in the email within 24 hours to register. This is the best way to contact me. - Information about walk-in clinics will be provided at checkout, but please message me on the portal first if you need an appointment. - RTO 8-12 weeks to fu on labs, sleep st udy, hearing exam and above. Consent Patient was informed and verbally consented to the use of an ambient scribe for clinic note documentation during this visit. Total time spent caring for the patient today was 45 minutes. This includes time spent before the visit reviewing the chart, time spent during the visit, and time spent after the visit on documentation, reviewing laboratory results, diagnostic imaging, medications, performing a medically necessary evaluation, counseling on diagnoses, care coordination, ordering appropriate tests, ordering appropriate medications, review of tests performed by other providers, reporting test results with the patient, communication with other healthcare providers. [facility] Medical History (Updated 01/18/25 @ 11:47 by Marcela Bloom, [facility]) Asthma High blood cholesterol Surgical History (Updated 01/18/25 @ 11:04 by Tawny Lundberg MA) No pertinent past surgical history Family History (Updated 01/18/25 @ 11:05 by Tawny Lundberg MA) Maternal Grandmother HTN (hypertension) Mother Diabetes Social History (Updated 01/18/25 @ 11:04 by Tawny Lundberg MA) Household Members: Significant Other and Children Both parents involved: No Caregiver staying overnight: No Housing: House Are you a primary day care aide to a significant other at home: Yes Do you presently have visiting nurse or other home services: No 75 years or older and lives alone: No Alcohol intake: never Patient Tobacco Use Status: Never used Tobacco e-Cigarette/Vaping Use: Never Used Second Hand Smoke Exposure: No service: No Current occupational status: employed 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 1. Little interest or pleasure in doing things: not at all 2. Feeling down, depressed, or hopeless: not at all 3. Trouble falling or staying asleep, or sleeping too much: more than half the days 4. Feeling tired or having little energy: several days 5. Poor appetite or overeating: several days 6. Feeling bad about yourself - or that you are a failure or have let yourself or your family down: not at all 7. Trouble concentrating on things, such as reading the newspaper or watching television: not at all 8. Moving or speaking so slowly that other people could have noticed. Or the opposite - being so fidgety or restless that you have been moving around a lot more than usual: not at all 9. Thoughts that you would be better off or of hurting yourself in some way: not at all Total score: 4 Depression Screening Interpretation: Negative Depression Screening Done: Yes 30111 - PHQ-9 Billing: Yes Source: Developed by Drs. John Carrion, Gauri Rojas, Nikhil Santiago and colleagues, with an educational jos from [employer]. Thrive Questionnaire Date Thrive assessed: 01/18/25 I am a: Patient What is your living situation today?: I have a steady place to live Within the past 12 months, did the food you bought not last and you didn't have the money to get more?: Never true Within the past 12 months, did you worry whether your food would run out before you got money to buy more?: Never true Do you have trouble paying for medicines?: No Do you have trouble getting transportation to medical appointments?: No Do you have trouble paying your heating and electricity bill?: No Do you have trouble taking care of your child, family member or friend?: No Do you have trouble with day-to-day activities such as bathing, preparing meals, shopping, managing finances, etc.?: No Are you currently unemployed and looking for a job?: No Are you interested in more education?: No Please select the resources that you would like help with: None Currently or been in a relationship where the following occur: No concerns reported THRIVE Score: 0 AUDIT C Alcohol Use Questionnaire (AUDIT-C) 1. How often do you have a drink containing alcohol?: Never 3. How often do you have six or more drinks on one occasion?: Never Total Score: 0 Score Reviewed/Action Taken: Yes SANTIAGO-7 AMB Questionnaire SANTIAGO-7 Date SANTIAGO - 7 assessed: 01/18/25 Feeling nervous, anxious, or on edge: 0 = Not at all Not being able to stop or control worryin = Not at all Worrying too much about different things: 0 = Not at all Trouble relaxin = Several days Being so restless that it is hard to sit still: 1 = Several days Becoming easily annoyed or irritable: 1 = Several days Feeling afraid as if something awful might happen: 0 = Not at all Total SANTIAGO-7 score (0-4 normal; 5-9 mild; 10-14 moderate; 15-21 severe): 3 Source: Developed by Drs. John Carrion, Gauri Rojas, Nikhil Santiago and colleagues, with an educational jos from [employer]. SANTIAGO-7 Assessment Billing SANTIAGO-7 Assessment Tool: SANTIAGO-7 Assessment 42142 ACT Questionnaire In the past 4 weeks, how much of the time did your asthma keep you from getting as much done at work, school or at home?: None of the time During the past 4 weeks, how often have you had shortness of breath?: Not at all During the past 4 weeks, how often did your asthma symptoms wake you up at night or earlier than usual in the morning?: Not at all During the past 4 weeks, how often have you had to use your rescue inhaler or nebulizer medication?: Not at all How would you rate your asthma control during the past 4 weeks?: Completely controlled ACT Interpretation: Negative Score: 25 Physical exam (Primary Care) Vital Signs: Last Vital Signs Temp 97.5 F 01/18/25 11:02 Pulse 82 01/18/25 11:02 Resp 12 01/18/25 11:02 BP 118/68 01/18/25 11:02 Pulse Ox 98 01/18/25 11:02 Oxygen Delivery Method Room Air 01/18/25 11:02 BMI result Body Mass Index 37.9 BMI Assessment/Plan discussion: High BMI High, discussed plan: lifestyle Tobacco/Smoking Status: Tobacco use Status Tobacco use date assessed 01/18/25 01/18/25 11:05 Patient Tobacco Use Status Never used Tobacco 01/18/25 11:05 e-Cigarette/Vaping Use Never Used 01/18/25 11:05 PHQ-9: PHQ-9 Score PHQ-9: Total score 4 01/18/25 11:05 Depression Screening Interpretation: Negative Thrive Assessment: Date of Thrive Assessment Date Thrive assessed 01/18/25 01/18/25 11:05 Currently or been in a relationship where the following occur: No concerns reported Coding Level of Care Code New Pt Level 4 (38702) Complex visit Add On G2211 Diagnoses Encounter to establish care with new provider Z76.89 Mild intermittent asthma in adult without complication J45.20 Obesity (BMI 30-39.9) E66.9 Vasectomy evaluation Z30.09 Fatigue, unspecified type R53.83 Fatigue type: unspecified Influenza vaccination declined Z28. Hard of hearing H91.90 Premature ejaculation F52.4 Hypersomnia G47.10 Rhinitis J31.0 Eustachian tube dysfunction H69.90 Additional Codes SANTIAGO-7 Assessment Billing - SANTIAGO-7 Assessment Tool: SANTIAGO-7 Assessment 35302 ([id number]) PHQ-9 - 58674 - PHQ-9 Billing: Yes ([id number]) Asthma Control Questionnaire - ACT Interpretation: Negative ([id number]) Assessment & Plan Assessment & Plan (1) Encounter to establish care with new provider: Code(s): Z76.89 - Persons encountering health services in other specified circumstances (2) Mild intermittent asthma in adult without complication: Code(s): J45.20 - Mild intermittent asthma, uncomplicated Category: Medical (3) Obesity (BMI 30-39.9): Code(s): E66.9 - Obesity, unspecified Category: Medical (4) Vasectomy evaluation: Code(s): Z30.09 - Encounter for other general counseling and advice on contraception Category: Medical (5) Fatigue: Code(s): R53.83 - Other fatigue Category: Medical Qualifiers: Fatigue type: unspecified Qualified Code(s): R53.83 - Other fatigue (6) Influenza vaccination declined: Onset Date: ~01/18/25 Code(s): Z28.21 - Immunization not carried out because of patient refusal Category: Medical (7) Hard of hearing: Code(s): H91.90 - Unspecified hearing loss, unspecified ear Category: Medical (8) Premature ejaculation: Code(s): F52.4 - Premature ejaculation Category: Medical (9) Hypersomnia: Code(s): G47.10 - Hypersomnia, unspecified Category: Medical (10) Rhinitis: Code(s): J31.0 - Chronic rhinitis Category: Medical (11) Eustachian tube dysfunction: Code(s): H69.90 - Unspecified Eustachian tube disorder, unspecified ear Category: Medical Plan . Orders: Orders Lipid Panel Today E66.9 - Obesity, unspecified, R53.83 - Other fatigue Vitamin B12 and Folate Today E66.9 - Obesity, unspecified, R53.83 - Other fatigue Vitamin D 25-OH Total Today E66.9 - Obesity, unspecified, R53.83 - Other fatigue RT home sleep study Today G47.10 - Hypersomnia, unspecified, R06.83 - Snoring Complete Blood Count no Diff Today E66.9 - Obesity, unspecified, R53.83 - Other fatigue Comprehensive Met. Panel Today E66.9 - Obesity, unspecified, R53.83 - Other fatigue Hemoglobin A1c Today E66.9 - Obesity, unspecified, R53.83 - Other fatigue Microalbumin, Random (w Creat) Today E66.9 - Obesity, unspecified, R53.83 - Other fatigue TSH reflex Free T4 Today E66.9 - Obesity, unspecified, R53.83 - Other fatigue Testosterone, Free/Total Today F52.4 - Premature ejaculation, R53.83 - Other fatigue Referrals Urology Referral F52.4 - Premature ejaculation, Z30.09 - Encounter for other general counseling and advice on contraception Audiology Referral H91.90 - Unspecified hearing loss, unspecified ear Medications: New fluticasone propionate 50 mcg/actuation administer into each nostril 1 spray intranasal BID 16 grams 12RF cetirizine (Zyrtec) 10 mg PO DAILY 90 caps 0RF Changed From albuterol sulfate 90 mcg/actuation 2 puffs inhalation Q4-6H PRN 6.7 grams 0RF shortness of breath or wheezing To albuterol sulfate 90 mcg/actuation 2 puffs inhalation Q8H PRN 6.7 grams 1RF shortness of breath or wheezing Patient Instructions: Walk-In Care (Urgent Care): We Make it Easy Walk-in for urgent medical issues such as: ? Seasonal Allergies ? Insect Bites ? Cough ? Diarrhea ? Acute Asthma Attacks ? Back, Knee or Joint Pain ? Ear Infection ? Fever without a Rash ? Headaches ? Nausea ? [place], Rash or Skin Irritation ? Sore Throat ? Sports Physicals ? Vomiting Most insurances are accepted. Patients do not need to be part of the [facility] to seek care at the walk-in clinic. Locations [address] [place] [address] Open Saturday through Saturday 8am-5pm *Hours may vary due to staffing availability. To confirm Walk-In Care hours please call. [address] [facility] , [place] [address] ? [phone] [facility] Walk-In Care in [place] provides services to ages 18 and over. Open Saturday-Saturday: 7 a.m. to 5 p.m. and Saturday: 9 a.m. to 3 p.m.* *Hours may vary due to staffing availability. To confirm Walk-In Care hours in [place], please call [phone]. [address] [place] [address] ? [phone] [facility] Walk-In Care in [place] provides services to ages 12 and over. Open Saturday-Saturday: 8 a.m. to 5 p.m. Hours may vary due to staffing availability. To confirm Walk-In Care hours in [place], please call [phone]. LABORATORY SERVICES: [facility] ? Primary Location [address] [place] [address] Saturday through Saturday 6:00 AM ? 5:00 PM Saturday 7:00 AM ? 11:00 AM* [phone] The [facility] is centrally located near the front entrance of the [facility] for easy outpatient access. Convenient parking is provided for outpatients. *Hours may vary due to staffing availability. To confirm Laboratory hours for any location, please call [phone]. Offsite Location For your convenience, we offer offsite laboratory draw stations at the following locations: [address] [place] [address] ? [facility] [address], [address] Saturday through Saturday 7:30 AM ? 1:00 PM* [phone] *Hours may vary due to staffing availability. To confirm Laboratory hours for any location, please call [phone]. [place] [address], [place] Saturday through Saturday 6:00 AM ? 3:30 PM* Saturday 6:30 AM ? 3 PM* [phone] *Hours may vary due to staffing availability. To confirm Laboratory hours for any location, please call [phone]. [address] [facility] Saturday through Saturday 7:30 AM ? 4:00 PM* [phone] *Hours may vary due to staffing availability. To confirm Laboratory hours for any location, please call [phone]. [address] [facility] Saturday through 9:00 AM ? 4:00 PM* *Hours may vary due to staffing availability. To confirm Laboratory hours for any location, please call [phone]. Appointments are not necessary. Walk-ins are welcome. Like all the departments throughout the [facility], our Lab undergoes frequent reviews to ensure the quality and accuracy of test results, and our staff takes special pride in its status as a nationally accredited facility. Patient Portal: [facility] ONE PATIENT. ONE RECORD. BETTER CARE. [facility] has a fully integrated, cutting- edge mobile electronic health information system that has revolutionized the way we care for our patients and manage our organization. This system improves communication and coordination enabling us to provide safe, higher-quality care, and an overall positive experience for staff and patients. Our first priority, as always, is to deliver the highest quality care possible. The system is running in the background supporting that priority. This portal is for all [facility] services and practices. If you are experiencing any technical difficulties with enrolling or logging into the Patient Portal please complete the [facility] Patient Portal Technical Support Form. [facility] now offers a new secure on-line interactive tool for patients to review their health information ? ?Patient Portal. This interactive web portal will enable patients and their families to take an active role in their care by providing easy, secure access to their health information via the internet. The Patient Portal provides patients with instant access to their health information, including laboratory results, medications, allergies, demographic information, visit history, and more. In addition to managing their own care, parents and health care proxies with authorized consent will appreciate the ability to access the records of those individuals for whom they provide care. Please note: if you wish to gain access (Proxy) to another patient?s portal, you will be required to come to the Medical Records Department in person at [facility]. Both the patient giving proxy access and the proxy will need to provide photo identification and complete the appropriate authorization. The Patient Portal also allows track their appointments online. The [facility] Patient Portal also saves patients time by allowing them to submit updates to their demographic and contact information prior to their visits. Portal email notifications will also alert patients to any new activity on their portal, such as test results and new appointments. In order to initially enroll in the [facility] Patient Portal, you will need to enter some required information including the following: * your [facility] Medical Record number * your personal home email address * name * date of Please note: In order to enroll in the [facility] Patient Portal, we need to have your email address on file in your electronic medical record. ?The email address needs to be specific for one person (yourself) in order for your Portal enrollment to be successful. ?You can update your email address in person with our Registration staff when you are registering for a hospital visit. ?Otherwise, you will need to come to the Health Information Management (Medical Records) Department at [facility]. ?We are open from Saturday ? Saturday from 7:30 a.m. ? 4:30 p.m. ?You will be required to present a photo id. Once you have successfully enrolled in the Patient Portal, you will receive a one-time user id and password for the Portal, sent to your email address. ?This will allow you to log into the Patient Portal within 99 hrs and reset your own logon id and password, and define personal security questions. ?Once your permanent login and password have been set, you can log into the [facility] Patient Portal at any time via the blue button above or from the Portal Logon button on any page of the [facility] website. [facility] and [facility] encourage all of our patients to enroll in Patient Portal as it presents a valuable opportunity for patients and their families to actively participate in their care and stay healthy Welcome to [facility]. ?We look forward to working with you.
[2025-01-18 11:02] VITALS: BP 118/68; PULSE 82; RESP 12; TEMP 36.4; O2SAT 98; BMI 37.9
== END 2025-01-18 11:42 | disposition home or self-care (01) ==
LOC: HO.HMCFM 10:53
PROVIDERS: PCP Nurse Practitioner Family; Visit Provider Nurse Practitioner Family
DX: J45.20 Mild intermittent asthma, uncomplicated (principal); E66.9 Obesity, unspecified; R53.83 Other fatigue; Z68.37 Body mass index [BMI] 37.0-37.9, adult; Z76.89 Persons encountering health services in other specified circumstances; Z30.09 Encounter for other general counseling and advice on contraception; Z28.21 Immunization not carried out because of patient refusal; H91.90 Unspecified hearing loss, unspecified ear; F52.4 Premature ejaculation; G47.10 Hypersomnia, unspecified; J31.0 Chronic rhinitis; H69.90 Unspecified Eustachian tube disorder, unspecified ear

== ENCOUNTER 2025-01-18 10:52 | Outpatient (REF) | payer BC, SELFPAY ==
[2025-01-18 15:08] LABS: Hematocrit 45.9 % (42.0-52.0); Hemoglobin 15.0 g/dl (14.0-18.0); Mean Corpuscular HGB Conc 32.7 g/dl (31.0-36.0); Mean Corpuscular Hemoglobin 28.2 pg (27.0-33.0); Mean Corpuscular Volume 86.4 fL (80.0-98.0); NRBC Abs Auto 0.000 X10*3/uL (0.0-0.012); NRBC Pct Auto 0.0 /100WBC (0.0-0.2); Platelet Count 301 X10*3/uL (160-400); Red Blood Count 5.31 X10*6/uL (4.60-5.80); White Blood Count 5.9 X10*3/uL (4.8-10.8)
[2025-01-18 17:17] LABS: Alanine Aminotransferase 29 U/L (0-40); Albumin Level 4.7 g/dL (3.5-5.0); Alkaline Phosphatase 72 U/L (39-117); Anion Gap 9 (12-20); Aspartate Amino Transferase 28 U/L (5-37); Blood Urea Nitrogen 11 mg/dL (9-16); Calcium 9.6 mg/dL (8.4-10.2); Carbon Dioxide 28 mmol/L (22-29); Chloride 105 mmol/L (96-108); Cholesterol 158 mg/dL (<200); Estimated Glomerular Filt Rate > 60; HDL Cholesterol 38 mg/dL (>40); Potassium 4.0 mmol/L (3.3-5.1); Sodium 138 mmol/L (135-145); Total Protein 8.3 g/dL (6.5-8.0); Triglycerides 112 mg/dL (<150)
[2025-01-18 18:09] LABS: Folate 7.0 ng/mL (> or = 4.0); Vitamin B12 461 pg/mL (200-900)
[2025-01-23 21:39] LABS: Testosterone, Free 67.3 pg/mL (35.0-155.0)
== END 2025-01-18 10:53 | disposition home or self-care (01) ==
LOC: HO.WFDLDS 10:52
PROVIDERS: PCP Nurse Practitioner Family; Visit Provider Nurse Practitioner Family
DX: F52.4 Premature ejaculation (principal); E66.9 Obesity, unspecified; R53.83 Other fatigue; J45.909 Unspecified asthma, uncomplicated; Z13.31 Encounter for screening for depression; Z13.39 Encounter for screening examination for other mental health and behavioral disorders; Z13.1 Encounter for screening for diabetes mellitus
CPT/HCPCS: 36415; 80053; 80061; 82043; 82306; 82570; 82607; 82746; 83036; 84402; 84403; 84443; 85027; 96127; 96160

== ENCOUNTER 2025-02-08 10:32 | Outpatient (AMB) | payer BC, SELFPAY ==
--- NOTE | 2025-02-08 10:34 | MHC.PC.OV ---
Intake Visit Reasons: Flu Allergies No Known Allergies (No Known Allergies*) Allergy (Verified 02/08/25 10:34) Medication List - Last Reconciled 02/08/25 [facility] albuterol sulfate 90 mcg/actuation 2 puffs inhalation Q8H PRN benzonatate 100 mg PO TID PRN 10 days cetirizine (Zyrtec) 10 mg PO DAILY fluticasone propionate 50 mcg/actuation 1 spray intranasal BID oseltamivir (Tamiflu) 75 mg PO Q12H 5 days Tobacco use date assessed: 01/18/25 Dental Screening Dental Screen Date: 01/18/25 HPI HPI Comments History of Present Illness Details 29 y/o M with asthma, obesity Social: has 2 children, works on [employer] Surgery: None Fhx: Health Maintenance Tdap 2018 Flu declined 01/18/25 Specialists [facility] wears glasses Telehealth visit CC: been feeling sick since Saturday with fever and chills plug having a hard time breathing feels like a stabbing sensation when I breath and coughing up mucus Home kit positive at time of visit for Flu A Telehealth Attestation The patient has been explained that this is an interactive (audio/video) telehealth encounter and what that consists of. The patient understands and wishes to proceed. Peerlyst platform was used. Total time spent caring for the patient today was 11 minutes. This includes time spent before the visit reviewing the chart, time spent during the visit, and time spent after the visit on documentation, reviewing laboratory results, diagnostic imaging, medications, performing a medically necessary evaluation, counseling on diagnoses, care coordination, ordering appropriate tests, ordering appropriate medications, review of tests performed by other providers, reporting test results with the patient, communication with other healthcare providers. [facility] Medical History (Updated 01/25/25 @ 09:00 by MG Loving) Asthma High blood cholesterol Surgical History (Updated 01/18/25 @ 11:04 by Tawny Lundberg MA) No pertinent past surgical history Family History (Updated 01/18/25 @ 11:05 by Tawny Lundberg MA) Maternal Grandmother HTN (hypertension) Mother Diabetes Social History (Updated 01/18/25 @ 11:04 by Tawny Lundberg MA) Household Members: Significant Other and Children Both parents involved: No Caregiver staying overnight: No Housing: House Are you a primary coronary care unit nurse to a significant other at home: Yes Do you presently have visiting nurse or other home services: No 75 years or older and lives alone: No Alcohol intake: never Patient Tobacco Use Status: Never used Tobacco e-Cigarette/Vaping Use: Never Used Second Hand Smoke Exposure: No service: No Current occupational status: employed 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 John Carrion, Gauri Rojas, Nikhil Santiago and colleagues, with an educational jos from [employer]. Physical exam (Primary Care) Tobacco/Smoking Status: Tobacco use Status Tobacco use date assessed 01/18/25 01/18/25 11:05 Patient Tobacco Use Status Never used Tobacco 01/18/25 11:05 e-Cigarette/Vaping Use Never Used 01/18/25 11:05 Thrive Assessment: Date of Thrive Assessment Date Thrive assessed 01/18/25 01/18/25 11:05 Telehealth Telehealth Telehealth Platform: Other (please specify) Location of provider rendering services: practice address Location of patient: address on file Patient Identification confirmed using: Name, : Yes Telehealth method: voice only Patient verbally consented to treatment: Yes Patient verbally consented to billing insurance company: Yes Patient informed of any privacy concerns related to visit: Yes Minutes spent on Phone/Video with Pt.: 7 Coding Level of Care Code Tele Est Pt Level 2 (41996) Add On Problem Visit Only Diagnoses Influenza A J10.1 Assessment & Plan Assessment & Plan (1) Influenza A: Code(s): J10.1 - Influenza due to other identified influenza virus with other respiratory manifestations Plan I have sent a prescription for Tamiflu. Please take this twice per day as directed. This helps to speed up the recovery from the flu but does not cure it. I have also sent in a cough medication to use as needed. Please use [id number] Tylenol or ibuprofen to help reduce fever, chills, body aches. Hydrate well. The flu and is highly contagious, be sure to watch your family for signs and symptoms and have them treated immediately should they show any symptoms. You should start to feel better after 10-14 days. If you do not please let me know so that we can arrange for a follow up visit. Feel better. Influenza (flu) is an infection in the lungs and breathing passages. It is caused by the influenza virus. There are different strains, or types, of the flu virus from year to year. Unlike the common cold, the flu comes on suddenly and the symptoms can be more severe. These symptoms include a cough, congestion, fever, chills, fatigue, aches, and pains. These symptoms may last for a few weeks. Although the flu can make you feel very sick, it usually doesn't cause serious health problems. Home treatment is usually all you need for flu symptoms. But your doctor may prescribe antiviral medicine to prevent other health problems, such as pneumonia, from developing. The risk of other health problems from the flu is highest for young children (under 5), older adults (over 65), women, people with long-term health conditions, people who live in nursing homes or long-term care centres, and indigenous peoples. How can you care for yourself at home? Get plenty of rest. Drink plenty of fluids. If you have to limit fluids because of a health problem, talk with your doctor before you increase the amount of fluids you drink. Take an [id number]-xovxvrx pain medicine if needed, such as acetaminophen (Tylenol), ibuprofen (Advil, Motrin), or naproxen (Aleve), to relieve fever, headache, and muscle aches. Read and follow all instructions on the label. No one younger than 18 should take aspirin. It has been linked to Yunior syndrome, a serious illness. Take any prescribed medicine exactly as directed. Do not smoke. Smoking can make the flu worse. If you need help quitting, talk to your doctor about stop-smoking programs and medicines. These can increase your chances of quitting for good. If the skin around your nose and lips becomes sore, put some petroleum jelly (such as Vaseline) on the area. To ease coughing: Suck on cough drops or plain, hard candy. Try an zlcr-bxp-oicejls cough or cold medicine. Read and follow all instructions on the label. Raise your head at night with an extra pillow. This may help you rest if coughing keeps you awake. To avoid spreading the flu Wash your hands regularly, and keep your hands away from your face. Stay home from school, work, and other public places until you are feeling better and your fever has been gone for at least 24 hours. The fever needs to have gone away on its own without the help of medicine. Ask people living with you to talk to their doctors about preventing the flu. They may get antiviral medicine to keep from getting the flu from you. To prevent the flu in the future, get the flu vaccine every fall. Encourage people living with you to get the vaccine. Cover your mouth when you cough or sneeze. If you can, cough or sneeze into the bend of your elbow, not your hands. When should you call for help? Call 911 anytime you think you may need emergency care. For example, call if: You have severe trouble breathing. You have a seizure. Call your doctor or nurse advice line now or seek immediate medical care if: You have trouble breathing. You have a fever with a stiff neck or a severe headache. You have pain or pressure in your chest or belly. You have a fever or cough that returns after getting better. You feel very sleepy, dizzy, or confused. You are not urinating. You have severe muscle pain. You have severe weakness, or you are unsteady. You have medical conditions that are getting worse Watch closely for changes in your health, and be sure to contact your doctor or nurse advice line if: You do not get better as expected. You are having a problem with your medicine.
--- OUTSIDE RECORDS SUMMARY | 2025-02-08 11:58 | XMS_ITS | Clinical Summary ---
Author Organization [employer] [facility] ity Address [address] [place] [address] Care Team Providers Care Marine [employer] Name Role Teacher [employer]aus Nieto MD Primary Care Provider [phone] Surgical History Surgery Date Site/Laterality Comments OTHER [...] Recorded Sex Assigned at Not on file Legal Sex Male 6:15 PM EST Gender Identity Not on file Sexual Orientation Not on file Plan of Treatment Health Maintenance Due Date Last Done Comments DTaP,Tdap,and Td Vaccines (1 - Tdap) 04/14/2014 Hepatitis B Vaccines (1 of 3 - 19+ 3-dose series) 04/14/2014 Cholesterol Screening (Lipid Panel) 01/13/2022 HIV Screening 01/13/2022 Hepatitis C Screening 01/13/2022 Social Influencers of Health Screening 01/13/2022 HPV Vaccines (1 - 3-dose SCD M series) 04/14/2022 Depression Screening 02/12/2024 COVID-19 Vaccine (1 - 2024-2 6 season) 2024 Influenza Vaccine (#1) 2024 01/29/2014 RSV Immunization Adult Patie nts (1 - 1-dose 75+ series) 04/14/2070 HIB Vaccines Aged Out No longer eligi [...] patient's age to complete this topic Meningococcal B Vaccine Aged Out No l onger eligible based on patient's age to complete this topic Pneumococcal Vaccine: Pediat rics (0 to 5 Years) and At-Risk Patients (6 to 49 Years) Aged Out No longer eligi ble based on patient's age to complete this topic RSV Immunization Patients Un kim 20 months Aged Out No longer eligible b ased on patient's age to complete this topic Varicella Vaccines Aged Out No longer eligible based on patient's age to complete this topic Care Teams Marine Fire Fighter Relationship Specialty Start Date End Date Klaus Nieto MD PCP - General Internal Medicine 12/21/13
== END 2025-02-08 10:32 | disposition home or self-care (01) ==
LOC: HO.HMCFM 10:32
PROVIDERS: PCP Nurse Practitioner Family; Visit Provider Nurse Practitioner Family
DX: J09.X2 Influenza due to identified novel influenza A virus with other respiratory manifestations (principal)